=== PATIENT | male | born 1995 | race Caucasian/White ===

== ENCOUNTER 2019-03-01 20:29 | Emergency (ER) | payer MEDICAID ==
[~2019-03-01] VITALS: Ht 175.3 cm; Wt 81.6 kg
[~2019-03-01 20:29] MED LIST: ALBU0.0912 IH
[2019-03-01 21:03] VITALS: BP 140/69
--- NOTE | 2019-03-01 21:07 | NUR ---
FLU SWAB COLLECTED. PT AMBULATED TO LOBBY WITH STEADY GAIT.
--- NOTE | 2019-03-01 22:23 | NUR ---
PT AMBULATED TO BED 02
--- NOTE | 2019-03-01 22:25 | NUR ---
23/M PRESENTED TO ED WITH C/O FEVER, COUGH, CONGESTION X6 DAYS. CLEAR BIT LUNG SOUNDS. EVEN UNLABORED BREATHING. NO SOB. NORMOACTIVE BOWEL SOUNDS HEARD IN ALL QUADRANTS. ABD SOFT AND NON TENDER. VSS. WILL CONTINUE TO MONITOR.
[2019-03-01 23:29] VITALS: BP 134/68
--- NOTE | 2019-03-01 23:29 | NUR ---
Patient discharged with v/s stable. Written and verbal after care instructions given and explained. Patient alert, oriented and verbalized understanding of instructions. Ambulatory with steady gait. All questions addressed prior to discharge. ID band removed. Patient advised to follow up with PMD. Rx of AZITHROMYCIN; PROMETHAZINE given. Patient educated on indication of medication including possible reaction and side effects. Opportunity to ask questions provided and answered.
== END 2019-03-01 23:09 | disposition home or self-care (01) ==
LOC: MED 20:29
DX: J02.8 Acute pharyngitis due to other specified organisms (principal); B96.89 Other specified bacterial agents as the cause of diseases classified elsewhere; J45.909 Unspecified asthma, uncomplicated; F17.200 Nicotine dependence, unspecified, uncomplicated; Z79.899 Other long term (current) drug therapy
CPT/HCPCS: 87804; 99283

== ENCOUNTER 2019-04-19 02:25 | Emergency (ER) | payer MEDICAID ==
[~2019-04-19] VITALS: Ht 175.3 cm; Wt 89.8 kg
[2019-04-19 02:36] VITALS: BP 147/80
--- NOTE | 2019-04-19 02:42 | NUR ---
PT AMBULATED TO BED 7 WITH STEADY GAIT
--- NOTE | 2019-04-19 03:00 | NUR ---
PT C/O FLU LIKE SYMPTOMS X5 DAYS. PT STATES WHEN HE COUGHS HIS BODY HURTS. FAMILY IN HOUSE ALSO SICK. PT SWABBED FOR FLU. PT HAVIGN SOME EPIDOSES OF VOMITING. PT STATES TOOK PREMETHAZINE AND DID NOT HAVE RELIEF. DENIES DIARRHEA; SKIN IS PINK/WARM/DRY; AAOX4 WITH EVEN AND STEADY GAIT; LUNGS CLEAR BL; HR EVEN AND REGULAR; PT DENIES ANY FEVER, CP, SOB AT THIS TIME; PATIENT STATES PAIN OF 8/10 AT THIS TIME; VSS; PATIENT POSITIONED FOR COMFORT; HOB ELEVATED; BED DOWN. ER MD MADE AWARE OF PT STATUS.
[2019-04-19] MEDS ORDERED: KETOROLAC 30 MG/ML VIAL IM ONE (03:40)
--- NOTE | 2019-04-19 04:12 | NUR ---
Patient discharged with v/s stable. Written and verbal after care instructions given and explained. Patient alert, oriented and verbalized understanding of instructions. Ambulatory with steady gait. All questions addressed prior to discharge. ID band removed. Patient advised to follow up with PMD. Rx of CARRIE PANDEY ROBITUSSIN given. Patient educated on indication of medication including possible reaction and side effects. Opportunity to ask questions provided and answered.
[2019-04-19 04:16] VITALS: BP 137/78
== END 2019-04-19 04:12 | disposition home or self-care (01) ==
LOC: MED 02:25
DX: J11.1 Influenza due to unidentified influenza virus with other respiratory manifestations (principal); Z79.899 Other long term (current) drug therapy
CPT/HCPCS: 87804; 96372; 99283; J1885

== ENCOUNTER 2019-07-24 01:45 | Emergency (ER) | payer MEDICAID, SELFPAY ==
[~2019-07-24] VITALS: Ht 175.3 cm; Wt 87.1 kg
[2019-07-24 01:48] VITALS: BP 126/79
--- NOTE | 2019-07-24 02:38 | NUR ---
24 Y/O MALE C/O SOB AND DRY COUGH. FELT SOB AFTER GOING TO WORK WITHOUT A MASK. NON PRODUCTIVE DRY COUGH. DENIES FEVER. STATES GIRLFIREND IS TESTED POSITIVE FOR COVID. PMH: ASTHMA ALLERGIES: NKA
[2019-07-24 02:39] LABS: BASOPHILS % (AUTO) 0.5 % (0.0-2.0); EOSINOPHILS # (AUTO) 0.1 K/uL (0-0.4); EOSINOPHILS % (AUTO) 1.5 % (0.0-4.0); LYMPHOCYTES # (AUTO) 1.6 K/uL (2.0-11.5); LYMPHOCYTES % (AUTO) 26.6 % (20.5-51.1); MEAN CORPUSCULAR HEMOGLOBIN 31 pg (27-31); MEAN CORPUSCULAR HGB CONC 34 g/dL (33-37); MEAN CORPUSCULAR VOLUME 92.2 fL (80-94); MONOCYTES # (AUTO) 0.5 K/uL (0.8-1.0); MONOCYTES % (AUTO) 8.2 % (1.7-9.3); NEUTROPHILS # (AUTO) 3.9 K/uL (1.8-7.7); NEUTROPHILS % (AUTO) 63.2 % (42.2-75.2); PLATELET COUNT (AUTO) 263 K/uL (140-450); RED BLOOD CELL COUNT(AUTO) 5.09 MIL/uL (4.20-6.10); RED CELL DISTRIBUTION WIDTH 13.2 % (11.6-13.7); WHITE BLOOD COUNT (AUTO) 6.2 K/uL (4.8-10.8)
--- NOTE | 2019-07-24 02:45 | NUR ---
XRAY AT BEDSIDE.
[2019-07-24 02:52] LABS: ALBUMIN 4.6 g/dL (3.4-5.0); ANION GAP 15.9 (8-16); CARBON DIOXIDE 28.6 mmol/L (21-32); CREATININE 1.1 mg/dL (0.6-1.3); POTASSIUM 3.5 mmol/L (3.5-5.1); TOTAL BILIRUBIN 0.7 mg/dL (0.0-1.0)
[2019-07-24 03:05] LABS: RSV NEGATIVE (NEGATIVE)
--- NOTE | 2019-07-24 03:45 | NUR ---
ERMD AT BEDSIDE
--- NOTE | 2019-07-24 04:05 | NUR ---
Patient discharged with v/s stable. Written and verbal after care instructions given and explained. Patient alert, oriented and verbalized understanding of instructions. Ambulatory with steady gait. All questions addressed prior to discharge. ID band removed. Patient advised to follow up with PMD. SELF ISOLATION EDUCATION PROVIDED.
== END 2019-07-24 04:05 | disposition home or self-care (01) ==
LOC: EEVIPCON 01:45 → MED 01:45
DX: R06.02 Shortness of breath (principal); R06.2 Wheezing; J45.909 Unspecified asthma, uncomplicated; F17.200 Nicotine dependence, unspecified, uncomplicated; Z79.899 Other long term (current) drug therapy
CPT/HCPCS: 36415; 71045; 80053; 85025; 87420; 87804; 99284; Q0092

== ENCOUNTER 2019-10-16 12:01 | Emergency (ER) | payer MEDICAID, SELFPAY ==
[~2019-10-16] VITALS: Ht 175.3 cm; Wt 86.2 kg
[2019-10-16 12:06] VITALS: BP 123/71
--- NOTE | 2019-10-16 12:12 | NUR ---
ADMITS GATHERED WITH FRIENDS LAST WEEK , WHICH THEY TESTED POSITIVE FOR COVID-19 PT NOW SYMPTOMATIC COUGH BODYACHES HEADACHE FEVER FATIGUE NAUSEA
--- NOTE | 2019-10-16 12:19 | NUR ---
COVID-19 SWAB COLLECTED AND WALKED TO LAB
[2019-10-16 12:44] VITALS: BP 123/71
--- NOTE | 2019-10-16 12:44 | NUR ---
Patient discharged with v/s stable. Written and verbal after care instructions given and explained. Patient alert, oriented and verbalized understanding of instructions. Ambulatory with steady gait. All questions addressed prior to discharge. ID band removed. Patient advised to follow up with PMD. Rx of ACETAMINOPHEN 500MG, ZOFRAN 4MG, PROMETHAZINE 6.25MG AND IBUPROFEN 800MG given. Patient educated on indication of medication including possible reaction and side effects. Opportunity to ask questions provided and answered.
--- NOTE | 2019-10-18 06:57 | NUR ---
--LATE ENTRY, POSITIVE COVID SWAB RECEIVIED; GIVEN TO INFECTION CONTROL.
== END 2019-10-16 12:44 | disposition home or self-care (01) ==
LOC: EEVIPCON 12:01 → MED 12:01
DX: B34.9 Viral infection, unspecified (principal); Z20.828 Contact with and (suspected) exposure to other viral communicable diseases; F17.290 Nicotine dependence, other tobacco product, uncomplicated; J45.909 Unspecified asthma, uncomplicated; Z71.6 Tobacco abuse counseling; Z79.899 Other long term (current) drug therapy
CPT/HCPCS: 99283; U0003

== ENCOUNTER 2019-10-20 00:10 | Emergency (ER) | payer MEDICAID, SELFPAY ==
[~2019-10-20] VITALS: Ht 175.3 cm; Wt 86.2 kg
[2019-10-20 00:17] VITALS: BP 130/90
--- NOTE | 2019-10-20 00:21 | NUR ---
Dr. Dhaliwal examining patient.
[2019-10-20] MEDS ORDERED: PANTOPRAZOLE 40 MG TABEC PO ONE (00:45)
--- NOTE | 2019-10-20 00:55 | NUR ---
PT MOVED TO BED 5
--- NOTE | 2019-10-20 01:04 | NUR ---
X-Ray at bedside.
--- NOTE | 2019-10-20 01:25 | NUR ---
PT TREATED, EVALUATED, ASSESSED AND DISCHARGED BY DR. REYNOLDS. ASSISTING DR. REYNOLDS WITH REMOVAL OF PT FROM CHART.
[2019-10-20 01:26] VITALS: BP 126/88
== END 2019-10-20 01:25 | disposition home or self-care (01) ==
LOC: MED 00:10
DX: U07.1 COVID-19 (principal); K21.9 Gastro-esophageal reflux disease without esophagitis; J45.909 Unspecified asthma, uncomplicated; Z79.899 Other long term (current) drug therapy
CPT/HCPCS: 71045; 99283; Q0092

== ENCOUNTER 2019-12-29 20:32 | Emergency (ER) | payer MEDICAID, SELFPAY ==
[~2019-12-29] VITALS: Ht 175.3 cm; Wt 86.2 kg
[2019-12-29 20:40] VITALS: BP 122/47
[2019-12-29 21:05] VITALS: BP 137/67
--- NOTE | 2019-12-29 21:05 | NUR ---
PT AMBUALTED TO BED 9 WITH STEADY GAIT.
--- NOTE | 2019-12-29 21:10 | NUR ---
PT 24 Y/O MALE BIB SELF FOR C/O DRY COUGH/SORE THROAT X 3 WEEKS AND SOB X 1 DAY. PT NOTED WITH WHITE ANAYA IN BACK OF THROAT. PT O2 @ 96 % RA. PT RESPIRATIONS ARE EVEN AND UNLABORED. DRY COUGH NOTED. PT NOTED WITH CRACKLES IN BILAT UPPER LOBES UPON INSPIRATION. VSS. MEDHX: ASTHMA ALLERGIES: NKA
--- NOTE | 2019-12-29 21:38 | NUR ---
ERMD AT BEDSIDE.
--- NOTE | 2019-12-29 21:44 | NUR ---
PT STREP SWAB COLLECTED.
--- NOTE | 2019-12-29 22:10 | NUR ---
RT AT BEDSIDE.
--- NOTE | 2019-12-29 22:16 | NUR ---
XRAY AT BEDSIDE.
[2019-12-29 23:07] VITALS: BP 135/62
--- NOTE | 2019-12-29 23:07 | NUR ---
Patient discharged with v/s stable. Written and verbal after care instructions given and explained. Patient alert, oriented and verbalized understanding of instructions. Ambulatory with steady gait. All questions addressed prior to discharge. ID band removed. Patient advised to follow up with PMD. Rx of PROMETHAZINE, AUGMENTIN given. Patient educated on indication of medication including possible reaction and side effects. Opportunity to ask questions provided and answered.
== END 2019-12-29 23:05 | disposition home or self-care (01) ==
LOC: MED 20:32
DX: J02.8 Acute pharyngitis due to other specified organisms (principal); J45.909 Unspecified asthma, uncomplicated; Z79.899 Other long term (current) drug therapy
CPT/HCPCS: 36600; 71045; 82803; 87081; 99284; Q0092

== ENCOUNTER 2020-02-09 11:39 | Emergency (ER) | payer MEDICAID, SELFPAY ==
[~2020-02-09] VITALS: Ht 175.3 cm; Wt 86.2 kg
[2020-02-09 11:44] VITALS: BP 124/74
[2020-02-09 13:55] VITALS: BP 130/77
== END 2020-02-09 13:55 | disposition home or self-care (01) ==
LOC: MED 11:39
DX: J02.9 Acute pharyngitis, unspecified (principal); R05 Cough; F17.210 Nicotine dependence, cigarettes, uncomplicated; J45.909 Unspecified asthma, uncomplicated; Z79.899 Other long term (current) drug therapy
CPT/HCPCS: 71045; 99283; Q0092

== ENCOUNTER 2020-06-12 16:25 | Emergency (ER) | payer MEDICAID, SELFPAY ==
[~2020-06-12] VITALS: Ht 177.8 cm; Wt 88.9 kg
[2020-06-12 16:28] VITALS: BP 140/83
[2020-06-12 17:22] VITALS: BP 140/83
== END 2020-06-12 17:21 | disposition home or self-care (01) ==
LOC: MED 16:25
DX: S63.611A Unspecified sprain of left index finger, initial encounter (principal); J45.909 Unspecified asthma, uncomplicated; E06.3 Autoimmune thyroiditis; Z79.899 Other long term (current) drug therapy; X58.XXXA Exposure to other specified factors, initial encounter; Y93.67 Activity, basketball; Y92.89 Other specified places as the place of occurrence of the external cause; Y99.8 Other external cause status
CPT/HCPCS: 73140; 99283

== ENCOUNTER 2020-09-27 23:41 | Emergency (ER) | payer MEDICAID ==
[~2020-09-27] VITALS: Ht 175.3 cm; Wt 83.9 kg
[2020-09-27 23:55] VITALS: BP 159/78
--- NOTE | 2020-09-27 23:55 | NUR ---
TO BED AMBULATORY
--- NOTE | 2020-09-28 00:02 | NUR ---
ekg performed at bedside. ekg reads sinus tachycardia @ 104
--- NOTE | 2020-09-28 01:00 | NUR ---
Dr. Sanchez with pt fo rM[facility]
--- NOTE | 2020-09-28 01:45 | NUR ---
d/c with VSS. d/c education given. opportunity to ask questions given and answered. referral to [facility] given. no rx given.
== END 2020-09-28 01:45 | disposition home or self-care (01) ==
LOC: MED 23:41
DX: R07.89 Other chest pain (principal); R03.0 Elevated blood-pressure reading, without diagnosis of hypertension; F15.10 Other stimulant abuse, uncomplicated; J45.909 Unspecified asthma, uncomplicated; Z79.899 Other long term (current) drug therapy
CPT/HCPCS: 93005; 99283

== ENCOUNTER 2020-12-09 23:01 | Emergency (ER) | payer MEDICAID ==
[~2020-12-09] VITALS: Ht 175.3 cm; Wt 81.6 kg
[2020-12-09 23:15] VITALS: BP 130/77
--- NOTE | 2020-12-09 23:15 | NUR ---
TO TENT AMBULATORY
--- NOTE | 2020-12-09 23:25 | NUR ---
SEEN AND EXAMINED BY AMEYA
--- NOTE | 2020-12-10 | NUR ---
SWAB FOR NOVEL SENT TO LAB
--- NOTE | 2020-12-10 02:24 | NUR ---
PT TAKEN TO RAD
[2020-12-10 02:55] VITALS: BP 119/80
--- NOTE | 2020-12-10 02:55 | NUR ---
Patient discharged with v/s stable. Written and verbal after care instructions given and explained. Patient verbalized understanding. Ambulatory with steady gait. All questions addressed prior to discharge. Advised to follow up with PMD.
== END 2020-12-10 02:55 | disposition home or self-care (01) ==
LOC: MED 23:01
DX: R05 Cough (principal); R06.02 Shortness of breath; M79.10 Myalgia, unspecified site; Z20.822 Contact with and (suspected) exposure to COVID-19
CPT/HCPCS: 71045; 99284; U0003

== ENCOUNTER 2020-12-24 19:24 | Emergency (ER) | payer MEDICAID ==
[~2020-12-24] VITALS: Ht 175.3 cm; Wt 81.6 kg
[2020-12-24 19:58] VITALS: BP 127/71
--- NOTE | 2020-12-24 20:03 | NUR ---
PT SENT TO LOBBY
--- NOTE | 2020-12-24 22:18 | NUR ---
PT TAKEN TO XRAY
--- NOTE | 2020-12-24 22:24 | NUR ---
PT RETURN TO [facility]
[2020-12-24] MEDS ORDERED: BACITRACIN OINT 500 UNITS/GM PKT TP ONE (22:35)
[2020-12-24] MEDS ORDERED: LIDOCAINE MPF 1% 10 MG/ML VIAL INJ ONE (22:35)
--- NOTE | 2020-12-24 22:36 | NUR ---
PT TAKEN TO BED 5
--- NOTE | 2020-12-24 22:40 | NUR ---
SEE COMPLETE ASSESSMENT
--- NOTE | 2020-12-24 23:26 | NUR ---
Dr. Yoon examining patient.
[2020-12-24] MEDS ORDERED: IBUP-2213 PO (23:49)
== END 2020-12-25 00:07 | disposition home or self-care (01) ==
LOC: MED 19:24
DX: S61.214A Laceration without foreign body of right ring finger without damage to nail, initial encounter (principal); J45.909 Unspecified asthma, uncomplicated; W26.8XXA Contact with other sharp object(s), not elsewhere classified, initial encounter; Y93.89 Activity, other specified; Y92.89 Other specified places as the place of occurrence of the external cause; Y99.8 Other external cause status
CPT/HCPCS: 12001; 73140; 99283; J2001